=== PATIENT | female | born 1985 | race Caucasian/White ===

== ENCOUNTER 2017-09-26 15:21 | Emergency (ER) | payer BC ==
[2017-09-26 16:21] VITALS: BP 124/80
--- NOTE | 2017-09-26 16:40 | UC ---
Complaint Female HPI - HPI Summary HPI Summary: 4 days ago noticed some itchy vaginal discharge---used 3 day otc monistat with some relief---has some itching, scant vaginal discharge no dysuria, no abdomen or back pain fevers chills nausea or vomiting - History Of Current Complaint Chief Complaint: UCGeneralIllness Stated Complaint: PERSONAL Time Seen by Provider: 09/26/17 16:38 Hx Obtained From: Patient Hx Last Menstrual Period: 09/12/17 ?: No Onset/Duration: Sudden Onset, Lasting Days - 4, Still Present Timing: Constant Severity Currently: Mild Character: Burning - /itching Aggravating Factor(s): Nothing Alleviating Factor(s): Nothing Associated Signs And Symptoms: Positive: Vaginal Discharge - itch - Allergies/Home Medications Allergies/Adverse Reactions: Allergies Allergy/AdvReac Type Severity Reaction Status Date / Time Sulfa (Sulfonamide Allergy Unknown Vomiting Verified 09/26/17 16:12 Antibiotics) Home Medications: Home Medications Norgestrel-Ethinyl Estradiol [Elinest-28 Tablet] 1 each PO DAILY 09/26/17 [ History Confirmed 09/26/17] PMH/Surg Hx/FS Hx/Imm Hx Previously Healthy: Yes - Surgical History Surgical History: None - Family History Known Family History: Positive: None - Social History Occupation: Employed Full-time Lives: With Family Alcohol Use: Occasionally Substance Use Type: None Smoking Status (MU): Former Smoker When Did the Patient Quit Smoking/Using Tobacco: 2 YRS AGO Review of Systems Constitutional: Negative Skin: Negative Eyes: Negative ENT: Negative Respiratory: Negative Cardiovascular: Negative Gastrointestinal: Negative Genitourinary: Negative, Vaginal/Penile Itching, Vaginal/Penile Discharge Motor: Negative Neurovascular: Negative Musculoskeletal: Negative Neurological: Negative Psychological: Negative Is Patient Immunocompromised?: No All Other Systems Reviewed And Are Negative: Yes Physical Exam Triage Information Reviewed: Yes Appearance: Well-Appearing, No Pain Distress, Well-Nourished Vital Signs: Initial Vital Signs Temp 98.8 F 09/26/17 16:14 Pulse 60 09/26/17 16:14 Resp 17 09/26/17 16:14 BP 124/80 09/26/17 16:14 Pulse Ox 99 09/26/17 16:14 Vital Signs Reviewed: Yes Eye Exam: Normal Eyes: Positive: Conjunctiva Clear ENT Exam: Normal ENT: Positive: Normal ENT inspection, Hearing grossly normal. Negative: Trismus , Muffled voice, Hoarse voice, Dental tenderness Dental Exam: Normal Neck exam: Normal Neck: Positive: Supple, Nontender Respiratory Exam: Normal Respiratory: Positive: Chest non-tender, No respiratory distress, No accessory muscle use Cardiovascular Exam: Normal Cardiovascular: Positive: RRR, Pulses Normal, Brisk Capillary Refill Abdominal Exam: Normal Abdomen Description: Positive: Nontender Pelvic Exam: Positive: External Exam Normal, Discharge - thick whitew no odor Musculoskeletal Exam: Normal Musculoskeletal: Positive: Strength Intact, ROM Intact, No Edema Neurological Exam: Normal Neurological: Positive: Alert Psychological Exam: Normal Skin Exam: Normal Complaint Female Dx - Course Course Of Treatment: diflucan , vaginal swabs to lab follow with pcp prn - Differential Dx/Diagnosis Provider Diagnoses: vaginal yeast infection Discharge - Sign-Out/Discharge Documenting (check all that apply): Discharge/Admit/Transfer - Discharge Plan Condition: Stable Disposition: HOME Prescriptions: Fluconazole 150 MG (NF) [Diflucan 150 mg (NF)] 150 mg PO ONCE #2 tab Patient Education Materials: Yeast Infection (ED) Referrals: [facility] [Outside] (if needed) Non Staff,Doctor [Primary Care Provider] - Additional Instructions: Follow with you [employer]ER. MD if needed - Billing Disposition and Condition Condition: STABLE Disposition: Home
--- NOTE | 2017-09-28 07:56 | UC ---
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 MD if needed - Billing Disposition and Condition Condition: STABLE Disposition: Home
== END 2017-09-26 17:15 | disposition home or self-care (01) ==
LOC: UCCORT 15:21
DX: B37.3 Candidiasis of vulva and vagina (principal); Z88.2 Allergy status to sulfonamides; Z87.891 Personal history of nicotine dependence
CPT/HCPCS: 81003; 84702; 87480; 87491; 87510; 87591; 87661; 99212; G0463